=== PATIENT | female | born 1980 | race Caucasian/White ===

== ENCOUNTER 2018-08-03 07:19 | Emergency (ER) | payer MEDICAID ==
[~2018-08-03] VITALS: Ht 160 cm; Wt 74.8 kg
[2018-08-03 07:30] VITALS: Ht 160 cm; Wt 74.8 kg
[2018-08-03 08:05] VITALS: BP 150/89
== END 2018-08-03 08:05 | disposition home or self-care (01) ==
LOC: EDBD 07:19 → ED 07:19
DX: H10.33 Unspecified acute conjunctivitis, bilateral (principal); Z90.49 Acquired absence of other specified parts of digestive tract
CPT/HCPCS: 99406